=== PATIENT | male | born 1935 | race Caucasian/White ===

== ENCOUNTER 2019-12-23 11:36 | Observation (INO) ==
[2019-12-23 12:44] LABS: Albumin 4.1 g/dL (3.2-5.2); Anion Gap 9 mmol/L (2-11); CO2 Carbon Dioxide 21 mmol/L (22-32); Calcium 8.6 mg/dL (8.6-10.3); Chloride 106 mmol/L (101-111); Sodium 136 mmol/L (135-145)
[2019-12-23 12:50] LABS: ALT 12 U/L (7-52); Alkaline Phosphatase 48 U/L (34-104); BUN/Creatinine Ratio 12.1 (8-20); Blood Urea Nitrogen 11 mg/dL (6-24); EGFR African American 96.3 (>60); EGFR Non-African American 79.6 (>60); Glucose 109 mg/dL (70-100)
[2019-12-23 12:51] LABS: ABS Eosinophils 0.1 10^3/ul (0-0.6); ABS Lymphocytes 1.2 10^3/ul (1.0-4.8); ABS Monocytes 0.4 10^3/ul (0-0.8); ABS Neutrophils 4.3 10^3/ul (1.5-7.7); Eosinophil % 1.6 %; Hematocrit 45 % (42-52); Hemoglobin 15.7 g/dL (14.0-18.0); Lymphocyte % 19.5 %; Mean Corpuscular HGB Conc 35 g/dL (31-36); Mean Corpuscular Hemoglobin 33 pg (27-31); Mean Corpuscular Volume 94 fL (80-94); Mean Platelet Volume 8.5 fL (7.4-10.4); Platelet Count 243 10^3/uL (150-450); Red Blood Count 4.76 10^6 /uL (4.18-5.48); Red Cell Distribution Width 13 % (10-15)
[2019-12-23 13:23] LABS: Potassium Redraw 4.1 mmol/L (3.5-5.0); Total Protein 7.4 g/dL (6.4-8.9)
[2019-12-23] MEDS ORDERED: Calcium Carb (TUMS) 500 mg CHEW TAB PO PRN (15:53)
[2019-12-23] MEDS ORDERED: Dextran 70/Hypromellose Tears Eye Drops 15 ml BTL (for Artificials Tears) BOTH EYES PRN (16:16)
[2019-12-23] MEDS: Heparin 5000 UNITS/ML 1 mL VIAL SUBCUT SCH (20:18)
[2019-12-24] MEDS: Heparin 5000 UNITS/ML 1 mL VIAL SUBCUT SCH ×2 (05:03→13:15)
[2019-12-24] MEDS ORDERED: Latanoprost 0.005% 2.5 ml BTL BOTH EYES SCH (09:00)
[2019-12-24 15:22] VITALS: BP 137/63
== END 2019-12-24 15:54 | disposition home or self-care (01) ==
LOC: MEDTELE 11:36 → ED 11:36
PROVIDERS: ADMIT Internal Medicine; ATTEND Internal Medicine

== ENCOUNTER 2020-05-31 17:02 | Inpatient (IN) ==
[2020-05-31 17:27] LABS: ABS Basophils 0.1 10^3/ul (0-0.2); ABS Eosinophils 0.1 10^3/ul (0-0.6); ABS Lymphocytes 1.1 10^3/ul (1.0-4.8); ABS Monocytes 0.7 10^3/ul (0-0.8); ABS Neutrophils 8.8 10^3/ul (1.5-7.7); Eosinophil % 1.1 %; Hematocrit 38 % (42-52); Hemoglobin 13.4 g/dL (14.0-18.0); Lymphocyte % 9.8 %; Mean Corpuscular HGB Conc 35 g/dL (31-36); Mean Corpuscular Hemoglobin 33 pg (27-31); Mean Corpuscular Volume 93 fL (80-94); Platelet Count 268 10^3/uL (150-450); Red Blood Count 4.08 10^6 /uL (4.18-5.48); Red Cell Distribution Width 13 % (10-15); White Blood Count 10.8 10^3/uL (3.5-10.8)
[2020-05-31 17:55] LABS: ALT 10 U/L (7-52); AST 13 U/L (13-39); Albumin 4.3 g/dL (3.2-5.2); Albumin/Globulin Ratio 1.8 (1-3); Alkaline Phosphatase 49 U/L (34-104); Anion Gap 6 mmol/L (2-11); Blood Urea Nitrogen 18 mg/dL (6-24); CO2 Carbon Dioxide 30 mmol/L (22-32); Calcium 9.4 mg/dL (8.6-10.3); Chloride 103 mmol/L (101-111); EGFR African American 80.5 (>60); EGFR Non-African American 66.6 (>60); Globulin 2.4 g/dL (2-4); Glucose 120 mg/dL (70-100); Potassium 3.8 mmol/L (3.5-5.0); Sodium 139 mmol/L (135-145); Total Protein 6.7 g/dL (6.4-8.9)
[2020-05-31 18:00] LABS: Urine Appearance Cloudy; Urine Bilirubin 1+ (Negative); Urine Blood Negative (Negative); Urine Color Amber; Urine Glucose Negative (Negative); Urine Ketones Trace (Negative); Urine Nitrite Negative (Negative); Urine Protein 1+(30 mg/dL) (Negative); Urine Urobilinogen Positive (Negative)
[2020-05-31 18:35] LABS: Urine Bacteria Absent (Absent); Urine Red Blood Cell 3+(>10/hpf) (Absent); Urine Squamous Epithelial Cell Present (Absent); Urine White Blood Cell Absent (Absent)
[2020-05-31 21:15] LABS: Troponin I 0.01 ng/mL (<0.03)
[2020-05-31] MEDS ORDERED: Iohexol 300 (CONTRAST) 10 ML SDV IV ONE (21:25)
[2020-06-01 02:56] LABS: Hematocrit 39 % (42-52); Hemoglobin 13.4 g/dL (14.0-18.0)
[2020-06-01] MEDS ORDERED: Calcium Carb (TUMS) 500 mg CHEW TAB PO PRN (06:01)
[2020-06-01] MEDS ORDERED: Dextran 70/Hypromellose Tears Eye Drops 15 ml BTL (for Artificials Tears) BOTH EYES PRN (06:01)
[2020-06-01 06:10] LABS: BUN/Creatinine Ratio 12.5 (8-20); EGFR African American 111.4 (>60); EGFR Non-African American 92.1 (>60); Potassium 3.7 mmol/L (3.5-5.0)
[2020-06-01 07:01] LABS: ABS Eosinophils 0.1 10^3/ul (0-0.6); ABS Lymphocytes 1.4 10^3/ul (1.0-4.8); ABS Monocytes 0.7 10^3/ul (0-0.8); ABS Neutrophils 6.1 10^3/ul (1.5-7.7); Eosinophil % 1.6 %; Hematocrit 40 % (42-52); Lymphocyte % 16.5 %; Mean Corpuscular HGB Conc 35 g/dL (31-36); Mean Corpuscular Hemoglobin 33 pg (27-31); Mean Corpuscular Volume 94 fL (80-94); Mean Platelet Volume 8.4 fL (7.4-10.4); Nucleated Red Blood Cells % 0.1; Platelet Count 253 10^3/uL (150-450); Red Cell Distribution Width 13 % (10-15); White Blood Count 8.3 10^3/uL (3.5-10.8)
[2020-06-01] MEDS ORDERED: ZINC OXIDE 12.8% (TOPICAL) 60 GM TUBE TOPICAL PRN (09:00)
[2020-06-01 09:05] LABS: TSH Ultra Thyroid Stim Horm 2.59 mcIU/mL (0.34-5.60)
[2020-06-01] MEDS: Latanoprost 0.005% 2.5 ml BTL BOTH EYES SCH (10:37)
[2020-06-01] MEDS: Nystatin TOP POWDER 15 GM BTL TOPICAL SCH ×2 (10:39→21:40)
[2020-06-01 14:47] LABS: Urine Appearance Clear; Urine Bilirubin Negative (Negative); Urine Blood Negative (Negative); Urine Color Yellow; Urine Glucose Negative (Negative); Urine Ketones Negative (Negative); Urine Nitrite Negative (Negative); Urine Protein Negative (Negative); Urine Specific Gravity 1.056 (1.010-1.030); Urine Urobilinogen Positive (Negative)
[2020-06-01] MEDS ORDERED: Haloperidol 5 mg/ml SDV IV/IM 5 MG/ML AMP IV SLOW PU PRN (15:10)
[2020-06-02 09:11] LABS: C Reactive Protein 3.28 mg/L (<8.01)
[2020-06-02] MEDS: Latanoprost 0.005% 2.5 ml BTL BOTH EYES SCH (09:21)
[2020-06-02] MEDS: Nystatin TOP POWDER 15 GM BTL TOPICAL SCH ×2 (09:22→19:44)
[2020-06-02 12:07] LABS: ABS Eosinophils 0.1 10^3/ul (0-0.6); ABS Lymphocytes 1.1 10^3/ul (1.0-4.8); ABS Monocytes 0.6 10^3/ul (0-0.8); ABS Neutrophils 6.1 10^3/ul (1.5-7.7); Eosinophil % 1.9 %; Hematocrit 40 % (42-52); Hemoglobin 14.2 g/dL (14.0-18.0); Lymphocyte % 13.8 %; Mean Corpuscular HGB Conc 35 g/dL (31-36); Mean Corpuscular Hemoglobin 33 pg (27-31); Mean Corpuscular Volume 93 fL (80-94); Mean Platelet Volume 7.7 fL (7.4-10.4); Platelet Count 252 10^3/uL (150-450); Red Blood Count 4.33 10^6 /uL (4.18-5.48); Red Cell Distribution Width 13 % (10-15)
[2020-06-02 13:18] LABS: Erythrocyte Sed Rate 12 mm/Hr (0-19)
[2020-06-03] MEDS: Latanoprost 0.005% 2.5 ml BTL BOTH EYES SCH (08:24)
[2020-06-03] MEDS: Nystatin TOP POWDER 15 GM BTL TOPICAL SCH ×2 (08:32→20:02)
[2020-06-04] MEDS: Nystatin TOP POWDER 15 GM BTL TOPICAL SCH ×2 (09:08→21:25)
[2020-06-04] MEDS: Latanoprost 0.005% 2.5 ml BTL BOTH EYES SCH (09:08)
[2020-06-05] MEDS: Nystatin TOP POWDER 15 GM BTL TOPICAL SCH ×2 (09:00→20:53)
[2020-06-05] MEDS: Latanoprost 0.005% 2.5 ml BTL BOTH EYES SCH (09:01)
[2020-06-06] MEDS: Latanoprost 0.005% 2.5 ml BTL BOTH EYES SCH (10:18)
[2020-06-06] MEDS: Nystatin TOP POWDER 15 GM BTL TOPICAL SCH ×2 (10:19→21:51)
[2020-06-07 08:39] LABS: Calcium 8.6 mg/dL (8.6-10.3); Potassium 3.6 mmol/L (3.5-5.0)
[2020-06-07] MEDS: Latanoprost 0.005% 2.5 ml BTL BOTH EYES SCH (08:40)
[2020-06-07] MEDS: Nystatin TOP POWDER 15 GM BTL TOPICAL SCH ×4 (08:40→23:44)
[2020-06-07 08:45] LABS: BUN/Creatinine Ratio 22.2 (8-20); EGFR African American 125.8 (>60)
[2020-06-08] MEDS: Latanoprost 0.005% 2.5 ml BTL BOTH EYES SCH (10:50)
[2020-06-08] MEDS: Nystatin TOP POWDER 15 GM BTL TOPICAL SCH ×2 (10:55→22:40)
[2020-06-09] MEDS: Latanoprost 0.005% 2.5 ml BTL BOTH EYES SCH (10:25)
[2020-06-09] MEDS: Nystatin TOP POWDER 15 GM BTL TOPICAL SCH ×2 (10:26→10:42)
[2020-06-09 12:03] VITALS: BP 114/59
== END 2020-06-09 10:25 | DRG 184 ==
LOC: MEDTELE 17:02 → ED 17:02 → OBSVTOIN 06-01 02:54 → MEDTELE 06-01 04:57
PROVIDERS: ADMIT Internal Medicine; ATTEND Internal Medicine